=== PATIENT | male | born 1935 | race Caucasian/White ===

== ENCOUNTER 2017-05-08 07:25 | Inpatient (IN) | payer OTHER, MEDICARE ==
[~2017-05-08] VITALS: Ht 6122.6 cm; Wt 110.8 kg
[~2017-05-08 07:25] MED LIST: ATOR-2 PO; CLOP75TA33 PO; CYAN-19 PO; DEXT15DR7 EACHEYE; FISH12002 PO; FURO40TA4 PO; GABA-532 PO; HYDR-569 PO; ISOS60TA4 PO; LEVO150T8 PO; LISI-600 PO; METO-384 PO; POTA-82 PO; RANO500T3 PO; TAMS0.4C32 PO; WARF1TAB PO; WARF2TAB PO
[2017-05-08 07:48] LABS: BASOPHILS % (AUTO) 0.3 % (0-1); EOSINOPHILS # (AUTO) 0.3 X10'3 (0-0.9); EOSINOPHILS % (AUTO) 4.4 % (0-6); HEMATOCRIT 43.7 % (42.0-52.0); HEMOGLOBIN 14.1 g/dl (14.0-17.9); LYMPHOCYTES # (AUTO) 0.9 X10'3 (1.1-4.8); LYMPHOCYTES % (AUTO) 15.4 % (21-51); MEAN CORPUSCULAR HEMOGLOBIN 26.2 PG (27.0-31.0); MEAN CORPUSCULAR HGB CONC 32.2 % (33.0-36.5); MEAN CORPUSCULAR VOLUME 81.5 FL (78-98); MEAN PLATELET VOLUME 8.8 FL (7.4-10.4); MONOCYTES # (AUTO) 0.5 X10'3 (0-0.9); MONOCYTES % (AUTO) 9.3 % (2-12); NEUTROPHILS # (AUTO) 4.1 X10'3 (1.8-7.7); NEUTROPHILS % (AUTO) 70.6 % (42-75); PLATELET COUNT 199 X10'3 (140-440); RED BLOOD COUNT 5.36 X10'6 (4.70-6.10); WHITE BLOOD COUNT 5.9 X10'3 (4.5-11.0)
[2017-05-08 08:05] LABS: ALANINE AMINOTRANSFERASE 50 U/L (12-78); ALBUMIN 3.9 G/DL (3.4-5.0); ALBUMIN/GLOBULIN RATIO 0.8 (1.1-1.5); ALKALINE PHOSPHATASE 107 IU/L (46-116); ANION GAP 8 (8-16); ASPARTATE AMINO TRANSFERASE 29 U/L (10-37); BILIRUBIN,TOTAL 0.4 MG/DL (0.1-1.0); BLOOD UREA NITROGEN 24 MG/DL (7-18); BUN/CREATININE RATIO 16.1 (5.4-32.0); CALCIUM 9.1 MG/DL (8.5-10.1); CHLORIDE 103 MMOL/L (99-107); CREATININE 1.49 MG/DL (0.60-1.10); GLUCOSE 155 MG/DL (70-104); POTASSIUM 4.5 MMOL/L (3.5-5.1); SODIUM 139 MMOL/L (135-145); TOTAL CARBON DIOXIDE 28.3 MMOL/L (24-32); TOTAL PROTEIN 8.5 G/DL (6.4-8.2); eGFR 45 ML/MIN
[2017-05-08 08:15] LABS: INR 1.8 INR; PARTIAL THROMBOPLASTIN TIME 37 SECONDS (22-32); PROTHROMBIN TIME 18.4 SECONDS (9.0-12.0)
[2017-05-08] MEDS ORDERED: HYDROcodone/acetaminophen 5mg/325mg tablet PO ONE (10:10)
[2017-05-08] MEDS ORDERED: non-formulary drug (Warfarin Sodium (Coumadin) 1 TAB) PO SCH (11:45)
[2017-05-08] MEDS ORDERED: warfarin 1mg tablet PO SCH ×3 (12:05→21:00)
[2017-05-08] MEDS ORDERED: insulin Lispro (HumaLOG) vial - multi-dose SQ SCH (12:10)
[2017-05-08] MEDS ORDERED: dextrose 50%-water 50ml dispensing syringe IV PRN ×2 (12:10)
[2017-05-08] MEDS ORDERED: dextrose ORAL solution 15 GM/59 ML bottle PO PRN ×2 (12:10)
[2017-05-08] MEDS ORDERED: MESSAGE TO PHARMACY PO ONE (12:10)
[2017-05-08] MEDS ORDERED: glucagon, human recombinant 1mg kit SUBCUT PRN (12:10)
[2017-05-08] MEDS ORDERED: enoxaparin 40mg/0.4ml syringe SUBCUT SCH (12:25)
[2017-05-08] MEDS ORDERED: normal saline 1000ml 1,000 ML IV SCH (12:25)
[2017-05-08] MEDS ORDERED: magnesium 4gm in 100ml NS 100 ML IV PRN (12:25)
[2017-05-08] MEDS ORDERED: magnesium hydroxide 30ml (MOM) UD suspension PO PRN (12:25)
[2017-05-08] MEDS ORDERED: magnesium 2GM in 50ml NS 50 ML IV PRN (12:25)
[2017-05-08] MEDS ORDERED: acetaminophen 325mg tablet PO PRN ×2 (12:25)
[2017-05-08] MEDS ORDERED: ondansetron/PF 4mg/2ml inj IV PRN (12:25)
[2017-05-08] MEDS ORDERED: magnesium Cl slow-release 64mg tablet PO PRN (12:25)
[2017-05-08] MEDS: K, MAG and/or Phos replacement - Verify level? MC SCH (12:25)
[2017-05-08] MEDS ORDERED: potassium Cl 20 mEq SR tablet PO PRN ×2 (12:25)
[2017-05-08 13:00] VITALS: BP 156/80
[2017-05-08] MEDS: polyvinyl alcohol ophthalmic drops 15ml bottle EACHEYE SCH ×3 (13:00→20:47)
[2017-05-08 14:26] LABS: D-DIMER 0.36 MG/L FEU (0-0.50)
[2017-05-08] MEDS ORDERED: LORazepam 2 mg/ml vial IV ONE (14:50)
[2017-05-08] MEDS: gabapentin 300mg capsule PO SCH ×2 (15:02→20:43)
[2017-05-08] MEDS: HYDROcodone/acetaminophen 5mg/325mg tablet PO SCH ×3 (15:03→20:46)
[2017-05-08] MEDS ORDERED: amLODIPine 5mg tablet PO ONE (15:10)
[2017-05-08] MEDS: normal saline 1000ml 1,000 ML IV SCH ×2 (18:57→23:15)
[2017-05-08 19:00] VITALS: BP 146/83
[2017-05-08] MEDS ORDERED: non-formulary drug (Metoprolol Succinate 1 TAB) PO SCH (20:00)
[2017-05-08] MEDS: famotidine 20mg tablet PO SCH (20:44)
[2017-05-08] MEDS: metoprolol succinate 25mg (24-HOUR) SR. Tablet PO SCH (20:44)
[2017-05-08] MEDS: ranolazine 500mg SR tablet (Q12H) PO SCH (20:45)
[2017-05-08] MEDS: Insulin Detemir pen SQ SCH (21:00)
[2017-05-08] MEDS ORDERED: ipratropium/albuterol 3ml nebule NEB PRN (21:10)
[2017-05-08 23:00] VITALS: BP 159/75
[2017-05-09] VITALS (7 sets, daily range): BP systolic 99–136; BP diastolic 51–83
[2017-05-09 05:04] LABS: BASOPHILS % (AUTO) 0.1 % (0-1); EOSINOPHILS # (AUTO) 0.3 X10'3 (0-0.9); EOSINOPHILS % (AUTO) 3.9 % (0-6); HEMATOCRIT 37.2 % (42.0-52.0); LYMPHOCYTES % (AUTO) 14.8 % (21-51); MEAN CORPUSCULAR HEMOGLOBIN 26.1 PG (27.0-31.0); MEAN CORPUSCULAR HGB CONC 32.3 % (33.0-36.5); MEAN CORPUSCULAR VOLUME 80.8 FL (78-98); MEAN PLATELET VOLUME 8.5 FL (7.4-10.4); MONOCYTES # (AUTO) 0.5 X10'3 (0-0.9); MONOCYTES % (AUTO) 7.4 % (2-12); NEUTROPHILS % (AUTO) 73.8 % (42-75); PLATELET COUNT 166 X10'3 (140-440); RED CELL DISTRIBUTION WIDTH 19.5 % (11.5-14.5); WHITE BLOOD COUNT 6.8 X10'3 (4.5-11.0)
[2017-05-09 05:08] LABS: INR 2.2 INR; PROTHROMBIN TIME 22.1 SECONDS (9.0-12.0)
[2017-05-09 05:24] LABS: ALBUMIN 3.1 G/DL (3.4-5.0); ANION GAP 9 (8-16); BLOOD UREA NITROGEN 17 MG/DL (7-18); CALCIUM 8.5 MG/DL (8.5-10.1); CHLORIDE 105 MMOL/L (99-107); CREATININE 1.06 MG/DL (0.60-1.10); GLUCOSE 96 MG/DL (70-104); MAGNESIUM 2.1 MG/DL (1.5-2.4); POTASSIUM 4.7 MMOL/L (3.5-5.1); SODIUM 140 MMOL/L (135-145); TOTAL CARBON DIOXIDE 25.6 MMOL/L (24-32); eGFR 67 ML/MIN
[2017-05-09] MEDS: levoTHYROXINE 75mcg tablet PO SCH (07:00)
[2017-05-09] MEDS ORDERED: non-formulary drug (Fish Oil/Borage/Flax/Om3,6,9#1 (Omega 3-6-9 1,200 mg Softgel) 1 CAP) PO SCH (08:00)
[2017-05-09] MEDS: HYDROcodone/acetaminophen 5mg/325mg tablet PO SCH ×5 (08:00→18:00)
[2017-05-09] MEDS: potassium Cl 20 mEq SR tablet PO SCH (08:00)
[2017-05-09] MEDS ORDERED: non-formulary drug (Potassium Chloride 2 TAB) PO SCH (08:00)
[2017-05-09] MEDS ORDERED: non-formulary drug (Atorvastatin Calcium 1 TAB) PO SCH (08:00)
[2017-05-09] MEDS: K, MAG and/or Phos replacement - Verify level? MC SCH (08:00)
[2017-05-09] MEDS ORDERED: non-formulary drug (Levothyroxine Sodium 1 TAB) PO SCH (08:00)
[2017-05-09] MEDS ORDERED: non-formulary drug (Isosorbide Mononitrate (Isosorbide Mononitrate Er) 1 TAB) PO SCH (08:00)
[2017-05-09] MEDS: isosorbide mononitrate 30mg tab.SR.24H PO SCH (08:24)
[2017-05-09] MEDS: cyanocobalamin 500mcg tablet PO SCH (08:24)
[2017-05-09] MEDS: atorvastatin 20mg tablet PO SCH (08:24)
[2017-05-09] MEDS: metoprolol succinate 25mg (24-HOUR) SR. Tablet PO SCH ×2 (08:25→20:28)
[2017-05-09] MEDS: famotidine 20mg tablet PO SCH ×2 (08:25→20:28)
[2017-05-09] MEDS: furosemide 40mg tablet PO SCH (08:26)
[2017-05-09] MEDS: gabapentin 300mg capsule PO SCH ×3 (08:26→20:28)
[2017-05-09] MEDS: clopidogrel 75mg tablet PO SCH (08:26)
[2017-05-09] MEDS: ranolazine 500mg SR tablet (Q12H) PO SCH ×2 (08:28→20:28)
[2017-05-09] MEDS: lisinopril 20mg tablet PO SCH (08:28)
[2017-05-09] MEDS: tamsulosin 0.4mg capsule PO SCH (08:28)
[2017-05-09] MEDS: nitroGLYCERIN 0.4mg/hour patch TD SCH (08:29)
[2017-05-09] MEDS: polyvinyl alcohol ophthalmic drops 15ml bottle EACHEYE SCH ×4 (08:29→20:27)
[2017-05-09] MEDS: azithromycin/NS 500mg/250ml 250 ML IV SCH (08:30)
[2017-05-09] MEDS: normal saline 1000ml 1,000 ML IV SCH ×2 (08:30→20:26)
[2017-05-09] MEDS: lactobacillus rhamnosus 10,000 MMU CELLS/CAPSULE PO SCH (17:40)
[2017-05-09] MEDS: Insulin Detemir pen SQ SCH (21:00)
[2017-05-09] MEDS ORDERED: warfarin 1mg tablet PO SCH (21:00)
[2017-05-10 03:00] VITALS: BP 152/81
[2017-05-10] MEDS: normal saline 1000ml 1,000 ML IV SCH (05:08)
[2017-05-10 06:00] VITALS: BP 132/82
[2017-05-10 06:58] LABS: BASOPHILS % (AUTO) 0.4 % (0-1); EOSINOPHILS # (AUTO) 0.3 X10'3 (0-0.9); EOSINOPHILS % (AUTO) 4.1 % (0-6); HEMOGLOBIN 11.2 g/dl (14.0-17.9); MEAN CORPUSCULAR HEMOGLOBIN 26.1 PG (27.0-31.0); MEAN CORPUSCULAR VOLUME 81.8 FL (78-98); MEAN PLATELET VOLUME 8.7 FL (7.4-10.4); MONOCYTES # (AUTO) 0.5 X10'3 (0-0.9); MONOCYTES % (AUTO) 8.6 % (2-12); NEUTROPHILS # (AUTO) 4.4 X10'3 (1.8-7.7); NEUTROPHILS % (AUTO) 70.9 % (42-75); PLATELET COUNT 162 X10'3 (140-440); RED BLOOD COUNT 4.27 X10'6 (4.70-6.10); RED CELL DISTRIBUTION WIDTH 19.6 % (11.5-14.5); WHITE BLOOD COUNT 6.2 X10'3 (4.5-11.0)
[2017-05-10] MEDS: levoTHYROXINE 75mcg tablet PO SCH (07:00)
[2017-05-10] MEDS: lactobacillus rhamnosus 10,000 MMU CELLS/CAPSULE PO SCH (07:00)
[2017-05-10 07:12] LABS: INR 2.7 INR; PROTHROMBIN TIME 27.2 SECONDS (9.0-12.0)
[2017-05-10 07:41] LABS: ANION GAP 7 (8-16); BLOOD UREA NITROGEN 18 MG/DL (7-18); BUN/CREATININE RATIO 13.1 (5.4-32.0); CALCIUM 8.1 MG/DL (8.5-10.1); CHLORIDE 108 MMOL/L (99-107); CREATININE 1.37 MG/DL (0.60-1.10); GLUCOSE 106 MG/DL (70-104); MAGNESIUM 1.8 MG/DL (1.5-2.4); POTASSIUM 4.7 MMOL/L (3.5-5.1); SODIUM 142 MMOL/L (135-145); TOTAL CARBON DIOXIDE 26.9 MMOL/L (24-32); eGFR 50 ML/MIN
[2017-05-10] MEDS: K, MAG and/or Phos replacement - Verify level? MC SCH (08:00)
[2017-05-10] MEDS: polyvinyl alcohol ophthalmic drops 15ml bottle EACHEYE SCH (08:20)
[2017-05-10] MEDS: azithromycin/NS 500mg/250ml 250 ML IV SCH (08:20)
[2017-05-10] MEDS: isosorbide mononitrate 30mg tab.SR.24H PO SCH (08:20)
[2017-05-10] MEDS: potassium Cl 20 mEq SR tablet PO SCH (08:21)
[2017-05-10] MEDS: tamsulosin 0.4mg capsule PO SCH (08:21)
[2017-05-10] MEDS: ranolazine 500mg SR tablet (Q12H) PO SCH (08:21)
[2017-05-10] MEDS: atorvastatin 20mg tablet PO SCH (08:22)
[2017-05-10] MEDS: lisinopril 20mg tablet PO SCH (08:22)
[2017-05-10] MEDS: cyanocobalamin 500mcg tablet PO SCH (08:22)
[2017-05-10] MEDS: furosemide 40mg tablet PO SCH (08:22)
[2017-05-10] MEDS: gabapentin 300mg capsule PO SCH (08:23)
[2017-05-10] MEDS: famotidine 20mg tablet PO SCH (08:23)
[2017-05-10] MEDS: HYDROcodone/acetaminophen 5mg/325mg tablet PO SCH ×2 (08:23→10:46)
[2017-05-10] MEDS: metoprolol succinate 25mg (24-HOUR) SR. Tablet PO SCH (08:23)
[2017-05-10] MEDS: clopidogrel 75mg tablet PO SCH (08:23)
[2017-05-10] MEDS: nitroGLYCERIN 0.4mg/hour patch TD SCH (08:24)
[2017-05-10 11:00] VITALS: BP 124/59
== END 2017-05-10 13:10 | disposition home or self-care (01) | DRG 303 ==
LOC: ER 07:26 → ED HOLD 11:43 → PCU 3S 12:36
PROVIDERS: ADMIT Internal Medicine; ATTEND Internal Medicine
DX: I25.110 Atherosclerotic heart disease of native coronary artery with unstable angina pectoris (principal); I48.91 Unspecified atrial fibrillation; E11.9 Type 2 diabetes mellitus without complications; J44.9 Chronic obstructive pulmonary disease, unspecified; E78.00 Pure hypercholesterolemia, unspecified; G47.30 Sleep apnea, unspecified; I10 Essential (primary) hypertension; F32.9 Major depressive disorder, single episode, unspecified; G89.29 Other chronic pain; K21.9 Gastro-esophageal reflux disease without esophagitis; Z95.5 Presence of coronary angioplasty implant and graft; Z95.1 Presence of aortocoronary bypass graft; Z95.3 Presence of xenogenic heart valve; Z79.01 Long term (current) use of anticoagulants; Z79.899 Other long term (current) drug therapy; Z88.8 Allergy status to other drugs, medicaments and biological substances; Z88.5 Allergy status to narcotic agent; Z87.891 Personal history of nicotine dependence; Z86.73 Personal history of transient ischemic attack (TIA), and cerebral infarction without residual deficits; Z82.49 Family history of ischemic heart disease and other diseases of the circulatory system
CPT/HCPCS: 36415; 80048; 80053; 82948; 83735; 83880; 84484; 85025; 85379; 85610; 85730; 87070; 93005; 94640; 94760; 97116; 97162; 99285; J0456; J2060; J2270; J7030